=== PATIENT | female | born 1955 | race Two or more races ===

== ENCOUNTER 2021-03-05 12:11 | Emergency (ER) | payer BC, MEDICAID ==
[~2021-03-05] VITALS: Ht 162.6 cm; Wt 90.3 kg
[2021-03-05 12:17] VITALS: BP 141/83
[2021-03-05] MEDS ORDERED: ketorolac tromethamine 15mg/ml inj. IM ONE (14:15)
== END 2021-03-05 15:25 | disposition home or self-care (01) ==
LOC: ER 12:12
DX: M25.511 Pain in right shoulder (principal); E11.9 Type 2 diabetes mellitus without complications; Z87.828 Personal history of other (healed) physical injury and trauma
CPT/HCPCS: 96372; 99283; J1885